=== PATIENT | female | born 1950 | race Caucasian/White ===

== ENCOUNTER 2022-02-18 05:35 | Emergency (ER) | payer OTHER ==
[~2022-02-18] VITALS: Ht 157.5 cm; Wt 29.5 kg
[2022-02-18] MEDS ORDERED: LISINOPRIL10 MG PO (05:53)
--- NOTE | 2022-02-19 14:29 | EKG ---
[facility] [address] [facility] [place], [place] [address] Signed Normal sinus rhythm Normal ECG No previous ECGs available Confirmed by PEDRITO YOUNG MD ([id number] on 02/19/2022 2:28:58 PM Electronically Signed By: PEDRITO YOUNG MD 02/19/22 1429 PATIENT NAME: YVONNE RAMESH Electrocardiogram DATE OF : 52 PHYSICIAN: PEDRITO YOUNG MD REPORT #: [id number] REPORT IS CONFIDENTIAL AND NOT TO BE RELEASED WITHOUT AUTHORIZATION
== END 2022-02-18 07:00 | disposition home or self-care (01) ==
LOC: ED 05:35
DX: R07.9 Chest pain, unspecified (principal); R51.9 Headache, unspecified; I10 Essential (primary) hypertension
CPT/HCPCS: 36415; 80053; 84484; 85025; 93005; 93010; 99285-25